=== PATIENT | male | born 1955 | race Two or more races ===

== ENCOUNTER 2019-03-24 23:17 | Emergency (ER) | payer BC, OTHER ==
[~2019-03-24] VITALS: Ht 165.1 cm; Wt 68.0 kg
[2019-03-25 00:25] VITALS: BP 145/70
== END 2019-03-25 00:54 | disposition home or self-care (01) ==
LOC: ER 23:18
DX: B00.1 Herpesviral vesicular dermatitis (principal); E11.9 Type 2 diabetes mellitus without complications

== ENCOUNTER 2020-03-15 18:36 | Emergency (ER) | payer OTHER ==
[~2020-03-15] VITALS: Ht 165.1 cm; Wt 68.0 kg
[2020-03-16 00:04] VITALS: BP 178/75
[2020-03-16] MEDS ORDERED: ACETAMINOPHEN 500 MG TAB PO ONE (00:15)
[2020-03-16] MEDS ORDERED: IBUPROFEN 800 MG TAB PO ONE (00:15)
== END 2020-03-16 00:48 | disposition home or self-care (01) ==
LOC: EDBD 18:36 → ER 18:36
DX: S73.101A Unspecified sprain of right hip, initial encounter (principal); M19.90 Unspecified osteoarthritis, unspecified site; E11.9 Type 2 diabetes mellitus without complications; I10 Essential (primary) hypertension; V86.59XA Driver of other special all-terrain or other off-road motor vehicle injured in nontraffic accident, initial encounter; Y93.I9 Activity, other involving external motion; Y92.488 Other paved roadways as the place of occurrence of the external cause; Y99.8 Other external cause status
CPT/HCPCS: 74176